=== PATIENT | female | born 1960 | race African-American/Black ===

== ENCOUNTER 2017-02-26 23:29 | Inpatient (IN) | payer OTHER ==
[~2017-02-26] VITALS: Ht 160 cm; Wt 64.0 kg
--- NOTE | 2017-02-27 00:10 | NUR ---
PT PRESENTED TO THE ER WITH A C/O N/V X 1 HR. PT STATED THAT SHE HAS BEEN VOMITTING FOR 2 MONTHS. PT APPEARS DEHYDRATED. PT IS ON THE MONITOR AND CONTINUOUS PULSE OX.
[2017-02-27] MEDS ORDERED: ONDANSETRON HCL/PF 4 MG/2 ML VIAL IVP ONE (00:30)
[2017-02-27] MEDS ORDERED: MORPHINE SULFATE INJ 2 MG/ML DISP.SYRIN IV ONE (00:30)
[2017-02-27] MEDS ORDERED: IV NS 0.9% 1,000 ML BAG IV ONE (00:30)
--- NOTE | 2017-02-27 00:36 | NUR ---
BLOOD DRAWN VIA LEFT AC 20G, GOOD BLOOD RETURN. SENT TO LAB
[2017-02-27] MEDS ORDERED: MORPHINE SULFATE INJ 4 MG/ML DISP.SYRIN ONE (00:40)
[2017-02-27] MEDS ORDERED: ONDANSETRON HCL/PF 4 MG/2 ML VIAL ONE (00:40)
[2017-02-27 00:50] LABS: BASOPHILS % (AUTO) 0.2 % (0.0-2.0); EOSINOPHILS # (AUTO) 0.1 /CMM (0.0-0.7); EOSINOPHILS % (AUTO) 1.8 % (0.0-6.0); HEMATOCRIT 29 % (33-45); HEMOGLOBIN 9.5 g/dL (11.5-14.8); LYMPHOCYTES # (AUTO) 0.8 /CMM (0.8-4.8); LYMPHOCYTES % (AUTO) 11.5 % (20.0-44.0); MEAN CORPUSCULAR HEMOGLOBIN 25 PG (26.0-33.0); MEAN CORPUSCULAR HGB CONC 33 g/dl (31.0-36.0); MEAN CORPUSCULAR VOLUME 76 fL (82-100); MONOCYTES # (AUTO) 0.5 /CMM (0.1-1.30); MONOCYTES % (AUTO) 6.8 % (2.0-12.0); NEUTROPHILS # (AUTO) 5.5 /CMM (1.8-8.9); NEUTROPHILS % (AUTO) 79.7 % (43.0-81.0); PLATELET COUNT (AUTO) 493 /CMM (150-450); RDW COEFFICIENT OF VARIATION 14.4 (11.5-15.0); RED BLOOD CELL COUNT(AUTO) 3.84 MIL/uL (4.0-5.2); WHITE BLOOD COUNT (AUTO) 6.9 K/uL (4.3-11.0)
[2017-02-27 01:03] LABS: INR 1.01 (0.87-1.13)
[2017-02-27 01:05] LABS: CALCIUM, SERUM 8.9 mg/dL (8.5-10.1); CARBON DIOXIDE 22 mmol/L (21-32); CHLORIDE 105 mmol/L (98-107); CREATININE 1.2 mg/dL (0.6-1.3); GLUCOSE 112 mg/dL (74-106); POTASSIUM 4.7 mmol/L (3.5-5.1); SODIUM SERUM 138 mmol/L (136-145); UREA NITROGEN, BLOOD 21 mg/dL (7-18)
[2017-02-27 01:11] LABS: ALANINE AMINOTRANSFERASE 19 U/L (12-78); ALBUMIN 3.5 g/dL (3.4-5.0); ALKALINE PHOSPHATASE 75 U/L (46-116); ASPARTATE AMINOTRANSFERASE 30 U/L (15-37); BILIRUBIN,TOTAL 0.2 mg/dL (0.2-1.0); LIPASE 129 U/L (73-393); TOTAL PROTEIN, SERUM 8.4 g/dL (6.4-8.2)
[2017-02-27 01:12] LABS: TROPONIN I < 0.017 ng/mL (0.00-0.056)
[2017-02-27] MEDS ORDERED: IOHEXOL-300 100 ML VIAL IV ONE (01:31)
[2017-02-27] MEDS ORDERED: IV NS 0.9% 250 ML IV ONE (01:31)
[2017-02-27 02:29] LABS: APPEARANCE,URINE CLEAR (CLEAR); BILIRUBIN,URINE NEGATIVE (NEGATIVE); BLOOD, URINE NEGATIVE Ery/uL (NEGATIVE); COLOR,URINE YELLOW (YELLOW); KETONES,URINE NEGATIVE (NEGATIVE); LEUKOCYTE ESTERASE ,URINE NEGATIVE (NEGATIVE); NITRITE, URINE NEGATIVE (NEGATIVE); PH,URINE 5.5 (5.0-8.0); PROTEIN,URINE NEGATIVE (NEGATIVE); UGLUCOSE NEGATIVE (NEGATIVE); UROBILINOGEN,URINE 0.2 EU/dL (0.2)
--- NOTE | 2017-02-27 02:30 | NUR ---
PT APPEARS TO BE RESTING COMFORTABLY. PT IS ON THE MONITOR AND CONTINUOUS PULSE OX.
--- NOTE | 2017-02-27 03:20 | NUR ---
PT AMBULATED TO THE BATHROOM WITH ASSISTANCE.
[2017-02-27] MEDS ORDERED: LEVOFLOXACIN 750 MG /D5W 150ML PIGGYBACK IV ONE (03:30)
--- NOTE | 2017-02-27 03:32 | NUR ---
M/S 309-1
--- NOTE | 2017-02-27 03:50 | NUR ---
DR GTZ IS AT THE BEDSIDE SPEAKING TO THE PT AND HER SISTER RE: FINDINGS.
[2017-02-27] MEDS ORDERED: LEVOFLOXACIN 750 MG /D5W 150ML 150 ML IV ONE (03:57)
--- NOTE | 2017-02-27 04:36 | NUR ---
CALLING REPORT TO TELE NURSE.
--- NOTE | 2017-02-27 05:05 | NUR ---
RN OPENING NOTES PT RECEIVED FROM ER VIA [facility] ACCOMPANIED BY DAUGHTER HAYDEE ON ROOM AIR, BREATHING EVEN AND UNLABORED. DENIES SOB, PAIN AND N/V AT THIS TIME. IV TO LAC PATENT AND INTACT CURRENTLY INFUSING LEVAQUIN. ORIENTED PT TO ROOM AND CALL LIGHT. SIDE RAILS UPX2. BED IN LOW/LOCKED POSITION WITH CALL LIGHT IN REACH. PT AND DAUGHTER DO NOT HAVE LIST OF HOME MEDICATIONS. DAUGHTER SAID SHE WILL BRING A LIST IN THE MORNING. WILL CONTINUE TO MONITOR
[2017-02-27 05:15] VITALS: BP 114/70
[2017-02-27 05:30] VITALS: BP 114/70
--- NOTE | 2017-02-27 07:35 | NUR ---
MS/RN CLOSING NOTES PT ASLEEP, EASILY AROUSABLE TO NAME. A/OX3. ON ROOM AIR, BREATHING EVEN AND UNLABORED. IN NO APPARENT DISTRESS. DENIES PAIN AND N/V. IV TO LAC PATENT AND INTACT. NOTIFIED NILO NGUYEN THAT WE ARE AWAITING ADMITTING ORDERS. WITH NO REPLY. ENDORSED TO DAY SHIFT RN TO FOLLOW UP WITH DAY SHIFT MD FOR ADMITTING ORDERS. MED RECON NOT COMPLETE, SISTER YT TO BRING LIST OF HOME MEDICATIONS TO BE RECONCILED. ALL NEEDS MET. KEPT PT COMFORTABLE DURING SHIFT. BED REMAINS IN LOW/LOCKED POSITION WITH CALL LIGHT IN REACH. SIDE RAILS UPX2. ENDORSED TO DAY SHIFT RN PARISH.
--- NOTE | 2017-02-27 07:38 | NUR ---
MS RN OPENING NOTES PATIENT IS RESTING IN BED IN NO APPARENT DISTRESS. BEDSIDE RAILS ARE UP X2. BED IS LOCKED AND LOWERED. CALL LIGHT IS WITHIN REACH. WILL CONTINUE TO MONITOR.
[2017-02-27 08:00] VITALS: BP 122/77
[2017-02-27] MEDS ORDERED: IV NS 0.9% 1,000 ML IV PRN (08:48)
[2017-02-27] MEDS ORDERED: MAGNESIUM HYDROXIDE 30 ML UDC PO PRN (09:00)
[2017-02-27] MEDS ORDERED: HYDROCODONE/APAP 5/325MG 1 EACH TABLET PO PRN (09:00)
[2017-02-27] MEDS ORDERED: ACETAMINOPHEN 325 MG TABLET PO PRN (09:00)
[2017-02-27] MEDS ORDERED: ENOXAPARIN SODIUM 40 MG/0.4 ML DISP.SYRIN SQ SCH (09:00)
[2017-02-27] MEDS ORDERED: ONDANSETRON HCL/PF 4 MG/2 ML VIAL IVP PRN (09:00)
[2017-02-27] MEDS ORDERED: MAG HYDROX/AL HYDROX/SIMETH 30 ML UDC PO PRN (09:00)
[2017-02-27] MEDS ORDERED: ZOLPIDEM TARTRATE 5 MG TABLET PO PRN (09:00)
[2017-02-27] MEDS ORDERED: Z GUARD REMEDY 2 OZ OINT TP PRN (09:00)
[2017-02-27 09:28] LABS: THYROID STIMULATING HORMONE 12.57 uIU/mL (0.358-3.74)
[2017-02-27 09:29] LABS: MAGNESIUM 1.7 mg/dL (1.8-2.4)
[2017-02-27] MEDS: ENOXAPARIN SODIUM 60 MG/0.6 ML DISP.SYRIN SQ SCH ×2 (10:30→22:10)
[2017-02-27] MEDS ORDERED: ATOR10TA PO (11:30)
[2017-02-27] MEDS ORDERED: BLOO-668 IN (11:30)
[2017-02-27] MEDS ORDERED: NIFE30TA89 PO (11:30)
[2017-02-27] MEDS ORDERED: INSU100V3 SQ ×2 (11:30)
[2017-02-27] MEDS ORDERED: LEVO25TA9 PO (11:30)
[2017-02-27] MEDS ORDERED: NPH,100V SQ ×2 (11:30)
[2017-02-27] MEDS: CEFTRIAXONE 1 G in IV D5W 50 ML IV SCH (12:06)
[2017-02-27] MEDS: SOD FERRIC GLUC 125 MG in IV NS 0.9% 100 ML IV SCH (14:49)
[2017-02-27] MEDS: FERROUS SULFATE (325 MG) 325 MG/TAB TABLET PO SCH (16:21)
[2017-02-27 16:23] VITALS: BP 118/67
--- NOTE | 2017-02-27 18:32 | NUR ---
MS RN CLOSING NOTES PATIENT IS RESTING IN BED IN NO APPARENT DISTRESS. BEDSIDE RAILS ARE UP X2. BED IS LOCKED AND LOWERED. CALL LIGHT IS WITHIN REACH. WILL ENDORSE CARE TO GAS CHECK PAD MAKER NURSE FOR PARISH.
[2017-02-27 20:00] VITALS: BP 115/65
[2017-02-27 22:00] VITALS: BP 115/65
[2017-02-27] MEDS: SUCRALFATE 1 G TABLET PO SCH (22:08)
--- NOTE | 2017-02-27 23:37 | NUR ---
RN NOTES: PATIENT WAS ENDORSED BY LESTER,TAKE OVER BY NATALY(RN), RECEIEVED PATIENT ASLEEP IN BED,NO SIGN OF RESPIRATORY DISTRESS, BED LOW AND LOCKED, CALL LIGHT WITHIN EASY REACH.
--- NOTE | 2017-02-28 06:51 | NUR ---
RN NOTES: SLEEP WELL IN THE NIGHT, MORNING CARE DONE AT 6AM,ASSISTED TO BATHROOM, ABLE TO AMBULATE WITH ASSIST,CALL ANDS NEEDS ATTENDED,NO PAIN OR DISCOMFORT, ENDORSED FOR CONTINUITY OF CARE.KEEP CALL LIGHT WITHIN EASY REACH.
[2017-02-28 06:54] LABS: BASOPHILS % (AUTO) 0.4 % (0.0-2.0); EOSINOPHILS # (AUTO) 0.1 /CMM (0.0-0.7); HEMATOCRIT 27 % (33-45); HEMOGLOBIN 8.8 g/dL (11.5-14.8); LYMPHOCYTES # (AUTO) 0.8 /CMM (0.8-4.8); MEAN CORPUSCULAR HEMOGLOBIN 25 PG (26.0-33.0); MEAN CORPUSCULAR HGB CONC 33 g/dl (31.0-36.0); MEAN CORPUSCULAR VOLUME 76 fL (82-100); MONOCYTES # (AUTO) 0.4 /CMM (0.1-1.30); MONOCYTES % (AUTO) 7.4 % (2.0-12.0); NEUTROPHILS # (AUTO) 4.4 /CMM (1.8-8.9); NEUTROPHILS % (AUTO) 76.2 % (43.0-81.0); PLATELET COUNT (AUTO) 422 /CMM (150-450); RDW COEFFICIENT OF VARIATION 14.6 (11.5-15.0); RED BLOOD CELL COUNT(AUTO) 3.56 MIL/uL (4.0-5.2); WHITE BLOOD COUNT (AUTO) 5.8 K/uL (4.3-11.0)
[2017-02-28 07:18] LABS: CALCIUM, SERUM 8.1 mg/dL (8.5-10.1); CREATININE 1.1 mg/dL (0.6-1.3); POTASSIUM 5.5 mmol/L (3.5-5.1)
[2017-02-28] MEDS: SUCRALFATE 1 G TABLET PO SCH ×4 (07:30→21:51)
[2017-02-28] MEDS ORDERED: PANTOPRAZOLE 40 MG TABLET.DR PO SCH (07:30)
--- NOTE | 2017-02-28 07:35 | NUR ---
MS RN OPENING NOTES RECEIVED PATIENT IN STABLE CONDITION. IN NO APPARENT DISTRESS. BEDSIDE RAILS ARE UP X2 . BED IS LOCKED AND LOWERED. CALL LIGHT IS WITHIN REACH. WILL CONTINUE TO MONITOR.
[2017-02-28 08:00] VITALS: BP 102/62
[2017-02-28] MEDS: DOCUSATE SODIUM 100 MG CAPSULE PO SCH ×2 (08:19→17:05)
[2017-02-28] MEDS: FERROUS SULFATE (325 MG) 325 MG/TAB TABLET PO SCH ×2 (08:19→17:05)
[2017-02-28] MEDS: PANTOPRAZOLE 40 MG VIAL IV SCH ×2 (08:22→17:05)
[2017-02-28] MEDS: ENOXAPARIN SODIUM 60 MG/0.6 ML DISP.SYRIN SQ SCH ×2 (08:22→21:51)
[2017-02-28] MEDS ORDERED: SODIUM POLYSTYRENE SULFONATE 15 G/60 ML BOTTLE PO ONE (09:10)
--- NOTE | 2017-02-28 09:15 | NUR ---
CALLED PHARMACY TO DELIVER KYEXELATE. PHARMACY WILL DELIVER.
[2017-02-28] MEDS: CEFTRIAXONE 1 G in IV D5W 50 ML IV SCH (11:36)
[2017-02-28] MEDS: SOD FERRIC GLUC 125 MG in IV NS 0.9% 100 ML IV SCH (15:03)
[2017-02-28 16:00] VITALS: BP 108/68
--- NOTE | 2017-02-28 19:00 | NUR ---
MS RN CLOSING NOTES PATIENT IS RESTING IN BED. IN NO APPARENT DISTRESS. VITAL SIGNS ARE WNL. BEDSIDE RAILS ARE UP X2 . BED IS LOCKED AND LOWERED. WILL ENDORSE CARE TO CERTIFIED DETENTION DEPUTY NURSE FOR PARISH.
--- NOTE | 2017-02-28 19:20 | NUR ---
MS/RN NOTES RECEIVED PT. LYING IN BED. AWAKE, ALERT AND ORIENTED X3. BREATHING EVEN AND UNLABORED ON ROOM AIR. NO SOB, RESPIRATORY DISTRESS OR COMPLAINTS OF PAIN NOTED AT THIS TIME. NO COMPLAINTS OF N/V AT THIS TIME. PT. WITH LEFT AC 20 GAUGE IV SALINE LOCK PRESENT, PATENT AND INTACT. PT. WITH FAMILY MEMBERS PRESENT AT BEDSIDE. BED LOCKED AND IN LOWEST POSITION, SIDE RAILS UP X3, BED ALARM ON, CALL LIGHT WITHIN REACH, WILL CONTINUE TO MONITOR.
[2017-02-28 20:00] VITALS: BP 106/60
--- NOTE | 2017-03-01 06:16 | NUR ---
MS/RN NOTES PT. IS LYING IN BED RESTING. BREATHING EVEN AND UNLABORED ON ROOM AIR. NO SOB, RESPIRATORY DISTRESS OR COMPLAINTS OF PAIN NOTED AT THIS TIME. NO COMPLAINTS OF N/V AT THIS TIME AND THROUGHOUT SHIFT. PT. WITH LEFT AC 20 GAUGE IV SALINE LOCK PRESENT, PATENT AND INTACT. ALL PT. NEEDS MET. BED LOCKED AND IN LOWEST POSITION, SIDE RAILS UP X3, BED ALARM ON, CALL LIGHT WITHIN REACH, WILL ENDORSE TO DAYSHIFT NURSE FOR CONTINUITY OF CARE.
[2017-03-01 06:42] LABS: CREATININE 1.2 mg/dL (0.6-1.3); POTASSIUM 4.5 mmol/L (3.5-5.1)
--- NOTE | 2017-03-01 07:35 | NUR ---
MS RN OPENING NOTES PATIENT IS ALERT AND ORIENTED. BEDSIDE RAILS ARE UP X2 . BED IS LOCKED AND LOWERED. IN NO APPARENT DISTRESS. PATIENT IS RESTING IN BED. CALL LIGHT IS WITHIN REACH. WILL CONTINUE TO MONITOR.
[2017-03-01 08:00] VITALS: BP 123/67
[2017-03-01] MEDS: DOCUSATE SODIUM 100 MG CAPSULE PO SCH (09:00)
[2017-03-01] MEDS ORDERED: MEGESTROL ACETATE 40 MG TABLET PO SCH (09:00)
[2017-03-01] MEDS: PANTOPRAZOLE 40 MG VIAL IV SCH (09:00)
[2017-03-01] MEDS: FERROUS SULFATE (325 MG) 325 MG/TAB TABLET PO SCH (09:29)
[2017-03-01] MEDS: SUCRALFATE 1 G TABLET PO SCH (09:30)
[2017-03-01] MEDS: ENOXAPARIN SODIUM 60 MG/0.6 ML DISP.SYRIN SQ SCH (09:34)
--- NOTE | 2017-03-01 11:32 | NUR ---
PATIENT DISCHARGED IN STABLE CONDITION. IN NO APPARENT DISTRESS. VITAL SIGNS WNL. PATIENT ESCORTED OUTSIDE OF THE HOSPITAL VIA WHEELCHAIR. ID BAND REMOVED. IV REMOVED.
== END 2017-03-01 11:30 | disposition home or self-care (01) | DRG 530 ==
LOC: ER 23:31 → MED 02-27 05:03
PROVIDERS: ADMIT Nurse Practitioner Acute Care; ATTEND Nurse Practitioner Acute Care
PROC: 0W9G3ZZ Drainage of Peritoneal Cavity, Percutaneous Approach (ICD-10-PCS; principal; 2017-02-27)
DX: C56.1 Malignant neoplasm of right ovary (principal); R18.0 Malignant ascites; J15.9 Unspecified bacterial pneumonia; J90 Pleural effusion, not elsewhere classified; I82.412 Acute embolism and thrombosis of left femoral vein; C78.6 Secondary malignant neoplasm of retroperitoneum and peritoneum; I10 Essential (primary) hypertension; E11.9 Type 2 diabetes mellitus without complications; D50.9 Iron deficiency anemia, unspecified; E83.51 Hypocalcemia; E87.5 Hyperkalemia; E03.9 Hypothyroidism, unspecified; J45.909 Unspecified asthma, uncomplicated; K21.9 Gastro-esophageal reflux disease without esophagitis; Z79.4 Long term (current) use of insulin; Z79.899 Other long term (current) drug therapy; D47.3 Essential (hemorrhagic) thrombocythemia; K29.70 Gastritis, unspecified, without bleeding; K27.9 Peptic ulcer, site unspecified, unspecified as acute or chronic, without hemorrhage or perforation; H54.61 Unqualified visual loss, right eye, normal vision left eye
CPT/HCPCS: 36415; 71045-TC; 76856-TC; 76942-TC; 80048-TC; 80061-TC; 80076-TC; 81000-TC; 82272-TC; 82378; 82728-TC; 82962-TC; 83540-TC; 83605-TC; 83690-TC; 83735-TC; 84443-TC; 84484-TC; 85025-TC; 85730-TC; 86304; 87040-TC; 87070-TC; 87081-TC; 87400; 88305-TC; 88312-TC; 88342; 89051-TC; A4606; C9113; J0696; J1650; J1956; J2270; J2405; J2916; J7030; J7050; J7060; Q9967; Z7610

== ENCOUNTER 2017-07-16 15:40 | Emergency (ER) | payer OTHER ==
[~2017-07-16] VITALS: Ht 160 cm; Wt 54.0 kg
[~2017-07-16 15:40] MED LIST: ATOR10TA PO; BLOO-668 IN; INSU100V3 SQ; LEVO25TA9 PO; NIFE30TA89 PO; NPH,100V SQ
--- NOTE | 2017-07-16 15:45 | NUR ---
[facility] TO ER, HYPOGLYCEMIA; FAMILY CALLED 911; BS- < 40 ON ASSESSMENT; NAD NOTED, VSS, RESP EVEN AND UNLABORED, PT WAS PUT ON MONITOR, WAITING FOR MD BRISCOE
--- NOTE | 2017-07-16 16:15 | NUR ---
URINE COLLECTED SENT TO LAB
[2017-07-16 16:25] LABS: BASOPHILS % (AUTO) 0.4 % (0.0-2.0); EOSINOPHILS % (AUTO) 3.2 % (0.0-6.0); HEMATOCRIT 23 % (33-45); HEMOGLOBIN 7.7 g/dL (11.5-14.8); LYMPHOCYTES # (AUTO) 0.5 /CMM (0.8-4.8); LYMPHOCYTES % (AUTO) 27.9 % (20.0-44.0); MEAN CORPUSCULAR HGB CONC 33 g/dl (31.0-36.0); MEAN CORPUSCULAR VOLUME 82 fL (82-100); MONOCYTES % (AUTO) 2.3 % (2.0-12.0); NEUTROPHILS # (AUTO) 1.1 /CMM (1.8-8.9); NEUTROPHILS % (AUTO) 66.2 % (43.0-81.0); PLATELET COUNT (AUTO) 205 /CMM (150-450); RDW COEFFICIENT OF VARIATION 13.9 (11.5-15.0); RED BLOOD CELL COUNT(AUTO) 2.84 MIL/uL (4.0-5.2)
[2017-07-16 16:28] LABS: WHITE BLOOD COUNT (AUTO) 1.7 K/uL (4.3-11.0)
[2017-07-16 16:35] LABS: APPEARANCE,URINE Clear (CLEAR); BILIRUBIN,URINE Negative (NEGATIVE); BLOOD, URINE Moderate Ery/uL (NEGATIVE); COLOR,URINE Yellow (YELLOW); KETONES,URINE Negative (NEGATIVE); LEUKOCYTE ESTERASE ,URINE Trace (NEGATIVE); NITRITE, URINE Negative (NEGATIVE); PROTEIN,URINE Trace mg/dl (NEGATIVE); UGLUCOSE 100 MG/DL mg/dL (NEGATIVE); UROBILINOGEN,URINE 0.2 EU/dL (0.2)
[2017-07-16 16:48] LABS: BACTERIA,URINE Few /HPF (None Seen); SQUAMOUS EPITHELIAL CELL,UR Few /HPF (None Seen); WBC,URINE 0-2 /HPF (0-3)
[2017-07-16 16:50] LABS: ALBUMIN 3.4 g/dL (3.4-5.0); BILIRUBIN,TOTAL 0.2 mg/dL (0.2-1.0); CALCIUM, SERUM 8.4 mg/dL (8.5-10.1); CREATININE 0.9 mg/dL (0.6-1.3); POTASSIUM 4.2 mmol/L (3.5-5.1); TOTAL PROTEIN, SERUM 7.6 g/dL (6.4-8.2)
[2017-07-16 18:10] LABS: BAND % (MANUAL) 2 % (0.0-5.0); EOSINOPHILS % (MANUAL) 6 % (0-4); LYMPHOCYTES % (MANUAL) 24 % (16-48); MONOCYTES % (MANUAL) 2 % (0-11.0); NEUTROPHILS % (MANUAL) 66 (42-76)
[2017-07-16 18:22] VITALS: BP 151/89
--- NOTE | 2017-07-16 18:22 | NUR ---
Patient discharged to home in stable condition. Written and verbal after care instructions given. Patient verbalizes understanding of instruction.Prescription given.
== END 2017-07-16 18:23 | disposition home or self-care (01) ==
LOC: ER 15:48
DX: E10.649 Type 1 diabetes mellitus with hypoglycemia without coma (principal); D61.810 Antineoplastic chemotherapy induced pancytopenia; I10 Essential (primary) hypertension; Z90.89 Acquired absence of other organs; Z88.0 Allergy status to penicillin; Z79.4 Long term (current) use of insulin
CPT/HCPCS: 36415; 71045-TC; 80048-TC; 80076-TC; 81000-TC; 82962-TC; 85025-TC; 86850-TC; A4606; Z7610